=== PATIENT | female | born 1965 | race African-American/Black ===

== ENCOUNTER 2016-04-30 10:11 | Outpatient (CLI) | payer OTHER, BC ==
[2014-04-04 23:53] VITALS: BP 112/60
== END 2016-04-30 10:12 ==
LOC: LAB 10:11
PROVIDERS: ATTEND Family Medicine
DX: E11.9 Type 2 diabetes mellitus without complications (principal)
CPT/HCPCS: 36415; 82043; 83036

== ENCOUNTER 2016-09-11 09:24 | Outpatient (CLI) | payer OTHER, BC ==
[2014-04-04 23:53] VITALS: BP 112/60
[2016-09-11 10:20] LABS: eGFR (African) > 60; eGFR (Non-African) > 60
== END 2016-09-11 09:25 ==
LOC: LAB 09:24
PROVIDERS: ATTEND Physician Assistant
DX: E11.9 Type 2 diabetes mellitus without complications (principal); I10 Essential (primary) hypertension; E78.00 Pure hypercholesterolemia, unspecified
CPT/HCPCS: 36415; 80053; 80061; 83036

== ENCOUNTER 2016-12-10 15:35 | Outpatient (CLI) | payer OTHER, BC ==
[2014-04-04 23:53] VITALS: BP 112/60
[2016-12-10 16:30] LABS: eGFR (African) > 60; eGFR (Non-African) > 60
== END 2016-12-10 15:36 ==
LOC: LAB 15:35
PROVIDERS: ATTEND Physician Assistant
DX: R34 Anuria and oliguria (principal); R53.83 Other fatigue
CPT/HCPCS: 36415; 80053; 84443

== ENCOUNTER 2017-02-28 21:07 | Emergency (ER) | payer OTHER, BC ==
[2017-02-28] MEDS ORDERED: HYDROcodone /APAP 10/325 1 EACH TABLET PO ONE (21:45)
[2017-02-28] MEDS ORDERED: PHARMACY KEY 1 EACH EACH MC ONE (22:02)
--- NOTE | 2017-02-28 22:04 | ED Physician Documentation ---
Lower Extremity Injury - HISTORIAN Historian: patient, spouse - HPI Stated Complaint: rt knee injury Chief Complaint: Lower Extremity Injury Additional Information: pt line dancing kicked out sudden rt knee pain and fell-now walks w/sig difficulty min swelling Onset: hours (2009) Where: school Severity: moderate Context: fall, twist, wearing shoes Associated Symptoms:: snapping sensation, popping sensation, unable to bear weight. denies: numbness distally, swelling Modifying Factors:: pain on movement - ROS CONST: no problems CVS/RESP: none MS/SKIN/LYMPH: none NEURO: denies: headache, head injury, anxiety - PAST HX Past History: diabetes Type 1, other (HTN) Immunizations: UTD Allergies/Adverse Reactions: Allergies Allergy/AdvReac Type Severity Reaction Status Date / Time codeine Allergy Verified 02/28/17 21:24 Home Medications: Ambulatory Orders Medication Instructions Recorded Aspirin [Aspirin Ec] 81 mg PO DAILY u2 09/15/13 Sitagliptin Phos/Metformin HCl 1 tab PO D 02/28/17 [Janumet Xr 50-1,000 mg Tablet] - SOCIAL HX Smoking History: non-smoker Alcohol Use: none - FAMILY HX Family History: none - VITAL SIGNS Vital Signs: Vital Signs Temp Pulse Resp BP Pulse Ox 119 H 14 150/92 98 02/28/17 21:08 02/28/17 21:08 02/28/17 21:08 02/28/17 21:08 - REVIEWED ASSESSMENTS Nursing Assessment Reviewed: Yes Vitals Reviewed: Yes ED Results Lab/Radiology - Orders Orders: ED Orders Category Date Time Status Knee Immobilizer 1T Care 02/28/17 21:46 Active HYDROcodone /APAP 10/325 [[place] 10/325] Med 02/28/17 21:45 Discontinued 1 each PO NOW ONE Lower Extremities Injury Phy - Physical Exam General Appearance: mild distress, moderate distress Ligaments: other (just hurts). No: pain on anterior drawer, laxity on anterior drawer, pain on posterior drawer, laxity on posterior drawe, pain on medial stress, laxity on medial stress, pain on lateral stress, laxity on lateral stress Gait: limited by pain Neuro/Vascular/Tendon: no vascular compromise, motor nml, sensation nml. No: abnml color, abnml warmth, abnml cap refill Head/ENT: nml inspection Neck/Back: nml inspection, non-tender Resp/CVS: chest non-tender, breath sounds nml, heart sounds nml, no resp. distress, lungs clear, reg. rate & rhythm Abdomen: non-tender Discharge Clincal Impression: knee sprain possibly meniscus Referrals: Lizbeth Ortiz MD [Primary Care Provider] - 2 Days Comments: knee brace and walker cane or crutch Condition: Good Disposition: 01 HOME, SELF-CARE Decision to Admit: NO Decision Time: 22:10
[2017-02-28 22:27] VITALS: BP 152/90
== END 2017-02-28 22:12 | disposition home or self-care (01) ==
LOC: ED 21:07
DX: S83.91XA Sprain of unspecified site of right knee, initial encounter (principal); X58.XXXA Exposure to other specified factors, initial encounter; Y93.9 Activity, unspecified; Y99.9 Unspecified external cause status
CPT/HCPCS: 99283

== ENCOUNTER 2017-03-26 14:39 | Outpatient (CLI) | payer OTHER ==
[2017-03-26 16:12] LABS: eGFR (African) > 60; eGFR (Non-African) > 60
== END 2017-03-26 14:45 ==
LOC: LAB 14:39
PROVIDERS: ATTEND Orthopaedic Surgery Sports Medicine
DX: M25.561 Pain in right knee (principal); S83.511A Sprain of anterior cruciate ligament of right knee, initial encounter
CPT/HCPCS: 36415; 80048; 83036

== ENCOUNTER 2018-03-13 15:00 | Outpatient (CLI) | payer OTHER ==
[2018-03-13 16:12] LABS: eGFR (Non-African) > 60
== END 2018-03-13 15:03 ==
LOC: LAB 15:00
PROVIDERS: ATTEND Physician Assistant
DX: E11.9 Type 2 diabetes mellitus without complications (principal)
CPT/HCPCS: 36415; 80053; 83036

== ENCOUNTER 2018-11-10 15:50 | Outpatient (CLI) | payer BC, OTHER ==
[2018-11-10 16:13] LABS: A1C 7.8 % (<5.7); eGFR (Non-African) > 60
[2018-11-10 16:14] LABS: HDL 44 mg/dL (>40)
== END 2018-11-10 15:52 ==
LOC: LABRHC 15:50
PROVIDERS: ATTEND Family Medicine
DX: E11.9 Type 2 diabetes mellitus without complications (principal); Z13.220 Encounter for screening for lipoid disorders
CPT/HCPCS: 80053; 80061; 83036

== ENCOUNTER 2019-02-21 22:26 | Emergency (ER) | payer OTHER ==
[2019-02-21] MEDS ORDERED: NALBUPHINE HCL 10 MG/1 ML IVP ONE (22:56)
--- NOTE | 2019-02-21 22:58 | ED Physician Documentation ---
General Adult - HPI Stated Complaint: "I have a migraine I can usually can take an Excedrin and it goes away" Chief Complaint: General Adult Onset: days ago (4) Timing: still present Severity: moderate Further Comments: yes (Pt is a 54 yo female with c/o migraine headache. Pt has had migraines in the past but it has been many years since the last one. Pt says it is the same in character as her previous migraines. She has nausea/vomiting and photophobia. No focal sx.) - ROS CONST: no problems EYES/ENT: other (photophobia) CVS/RESP: none GI/: nausea NEURO/PSYCH: headache - PAST HX Past History: other (DM, Anxiety, HTN, HLD, Migraines) Allergies/Adverse Reactions: Allergies Allergy/AdvReac Type Severity Reaction Status Date / Time codeine Allergy Verified 02/21/19 22:51 Home Medications: Ambulatory Orders Medication Instructions Recorded Estradiol [Estrace] 1 mg PO DAILY 02/21/19 Metformin HCl 500 mg PO BID 02/21/19 - SOCIAL HX Smoking History: non-smoker - FAMILY HX Family History: No - VITAL SIGNS Vital Signs: Vital Signs Temp Pulse Resp BP Pulse Ox 97.9 F 98 H 16 139/85 96 02/21/19 22:30 02/21/19 22:30 02/21/19 22:30 02/21/19 22:30 02/21/19 22:30 - REVIEWED ASSESSMENTS Nursing Assessment Reviewed: Yes Vitals Reviewed: Yes Progress - Progress Progress: Nubain 5 mg IM x 2 Benadryl 25 mg po for itch after Nubain. ED Results Lab/Radiology - Orders Orders: ED Orders Category Date Time Status Nalbuphine HCl [Nubain] Med 02/21/19 22:56 Once 5 mg IVP NOW ONE General Adult Physical Exam - PHYSICAL EXAM GENERAL APPEARANCE: moderate distress EENT: eye inspection normal, pharynx normal NECK: normal inspection, supple RESPIRATORY: no resp distress, chest non-tender, breath sounds normal CVS: reg rate & rhythm, heart sounds normal ABDOMEN: soft, no organomegaly, normal bowel sounds BACK: normal inspection, no CVA tenderness SKIN: warm/dry, normal color EXTREMITIES: non-tender, normal range of motion, no evidence of injury, tenderness, other NEURO: oriented X3, CN's nml as tested, motor nml, sensation nml Discharge Clincal Impression: Migraine Qualifiers: Migraine type: without aura Status migrainosus presence: without status migrainosus Intractability: not intractable Qualified Code(s): G43.009 - Migraine without aura, not intractable, without status migrainosus Referrals: Lizbeth Ortiz MD [Primary Care Provider] - Condition: Stable Disposition: 01 HOME, SELF-CARE Decision to Admit: NO Decision Time: 00:42
[2019-02-21] MEDS ORDERED: NALBUPHINE HCL 10 MG/1 ML IM ONE (23:02)
[2019-02-22] MEDS ORDERED: NALBUPHINE HCL 10 MG/1 ML IM STA (00:05)
[2019-02-22] MEDS ORDERED: diphenhydrAMINE HCL 25 MG TABLET PO ONE (00:35)
[2019-02-22 00:56] VITALS: BP 135/87
== END 2019-02-22 00:45 | disposition home or self-care (01) ==
LOC: ED 22:26
DX: G43.009 Migraine without aura, not intractable, without status migrainosus (principal)
CPT/HCPCS: 96372; 99282; 99284; J2300